=== PATIENT | male | born 1970 | race Caucasian/White ===

== ENCOUNTER 2023-11-02 20:04 | Emergency (ER) | payer OTHER, SELFPAY ==
[2023-11-02 20:09] VITALS: BP 153/81; PULSE 71; RESP 18; TEMP 36.7; O2SAT 96; BMI 27.5
--- NOTE | 2023-11-02 20:36 | ED_ITS ---
HPI - General Adult General Chief complaint: Eye Problems Stated complaint: Metal shavings in eyes Time Seen by Provider: 11/02/23 20:13 Source: patient Mode of arrival: ambulatory Limitations: no limitations History of Present Illness HPI narrative: 52-year-old male presenting today with eye pain. He states that on which is 3 days ago, he was grinding metal with a metal tile lather. He believes he has metal shavings in his eyes. His eyes have been very red and sensitive all weekend. He denies any blurry vision. His states that the metal tile lather gives off a significant amount of chavarria that are very warm and bright. 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 Related Data Previous Rx's Medication Instructions Recorded cyclopentolate 0.5 % eye drops 2 drp ophthalmic (eye) BID #15 mL 11/02/23 Allergies Allergy/AdvReac Type Severity Reaction Status Date / Time No Known Drug Allergies Allergy Verified 11/02/23 20:10 Review of Systems Status of ROS: Reports: 6 or more systems reviewed and unremarkable except as noted in History and below [facility] Medical History No significant past medical history Surgical History No significant past surgical history Social History Smoking Status: Never smoker Second hand tobacco smoke exposure: No How often do you have a drink containing alcohol: never AUDIT-C Alcohol total score: 0 Non-prescribed substance use: denies use Exam Narrative: Exam Narrative: Well-nourished well-developed patient, clearly uncomfortable. Alert and oriented. Answers questions appropriately. Mood and affect are appropriate. Thoughts are goal oriented and rational. No tangential or magical thinking noted. Patient speaks in full sentences without needing to catch his breath. HEENT: Normocephalic atraumatic. Pupils are equally round reactive to light. Extraocular muscles are intact. Conjunctivae are red and swollen bilaterally. He has a hard time opening his eyes. Skin: Well perfused without any obvious rashes. Slight swelling and erythema of upper and lower lids bilaterally. Const: Vital Signs, click to edit/add: Vital Signs - 24 hr 11/02/23 20:09 Temperature 98.1 F Pulse Rate [Pulse Oximeter] 71 Respiratory Rate 18 Blood Pressure [Ri ght Upper Arm] 153/81 H Pulse Oximetry 96 Oxygen Delivery Me thod Room Air Course Course ED Course: Tetracaine eyedrops were used bilaterally which did provide some relief to the patient. He was quite sensitive to light and was most comfortable in the dark. Fluorescein exam was done which did not reveal any foreign objects or corneal ulcerations. I did discuss with Dr. Tijerina, at [facility] who suggested antibiotic and steroid drops with cyclopentolate. Vital Signs Vital signs: Initial Vital Signs Temperature 98.1 F 11/02/23 20:09 Temperature Source Temporal Artery Scan 11/02/23 20:09 Pulse Rate 71 11/02/23 20:09 Respiratory Rate 18 11/02/23 20:09 Blood Pressure 153/81 H 11/02/23 20:09 Blood Pressure Mean 105 11/02/23 20:09 Blood Pressure Position Sitting 11/02/23 20:09 Pulse Oximetry 96 11/02/23 20:09 Oxygen Delivery Method Room Air 11/02/23 20:09 Vital Signs Temperature 98.1 F 11/02/23 20:09 Pulse Rate 71 11/02/23 20:09 Respiratory Rate 18 11/02/23 20:09 Blood Pressure 153/81 H 11/02/23 20:09 Pulse Oximetry 96 11/02/23 20:09 Oxygen Delivery Method Room Air 11/02/23 20:09 Temperature 98.1 F 11/02/23 20:09 Pulse Rate 71 11/02/23 20:09 Respiratory Rate 18 11/02/23 20:09 Blood Pressure 153/81 H 11/02/23 20:09 Pulse Oximetry 96 11/02/23 20:09 Oxygen Delivery Method Room Air 11/02/23 20:09 Medical Decision Making MDM Narrative Medical decision making narrative: 52-year-old male with what appears to photo keratitis. Treatment with antibiotic-steroid ointment q.i.d. and cyclopentolate. Follow-up with human services care specialist this week. Discharge Plan Discharge Clinical Impression: Photokeratitis of both eyes Patient Disposition: Home, Self-Care Condition: Stable Additional Instructions: Use the antibiotic and steroid ointment that you received from the ER today 4 times per day for 5 days. Another prescription has been sent to the pharmacy for you that should help with discomfort. You should follow-up with an eye doctor this week. Recommend making an appointment [facility] in [place] or with any provider that you prefer. Prescriptions: New cyclopentolate 0.5 % drops 2 drp ophthalmic (eye) BID Qty: 15 0RF Rx Instructions: compress lacrimal sac for 1-2 minutes after instillation Stand Alone Forms: MyHealth Info Instructions
[2023-11-02 20:39] VITALS: BP 145/74; PULSE 68; RESP 18; TEMP 36.7; O2SAT 96
[2023-11-02 20:42] VITALS: BP 145/74; PULSE 68; RESP 18; TEMP 36.7
--- NOTE | 2023-11-05 09:44 | ED.NURSE ---
Pharmacist from [facility] unable to fill cyclopentolate as it is not available at that pharmacy- and want to substitute that with atropine. Dr Omer wanted to make sure that he (Adolfo) is still having symptoms of light sensitivity and pain before it is used and Dr Omer is ok to have it filled with the substitution.
== END 2023-11-02 20:55 | disposition home or self-care (01) ==
LOC: ED 20:55
PROVIDERS: Emergency Provider Family Medicine
DX: H16.133 Photokeratitis, bilateral (principal)
CPT/HCPCS: 99283; 99284; A9270